=== PATIENT | female | born 1975 | race African-American/Black ===

== ENCOUNTER 2018-08-26 10:49 | Emergency (ER) | payer SELFPAY ==
[~2018-08-26] VITALS: Ht 170.2 cm; Wt 76.0 kg
[2018-08-26 10:57] VITALS: Ht 170.2 cm; Wt 76.0 kg
[2018-08-26 11:56] LABS: BASOPHIL % 0.3 % (0-2); PLATELET COUNT 140 x10^3mcL (130-400); RED CELL DISTRIBUTION WIDTH 14.4 % (11.5-14.5)
[2018-08-26 13:25] VITALS: BP 115/75
[2018-08-27 05:13] LABS: RAPID PLASMA REAGIN Non Reactive (Non Reactive)
== END 2018-08-26 13:25 | disposition home or self-care (01) ==
LOC: ED 10:49
PROVIDERS: Emergency Medicine
DX: B34.9 Viral infection, unspecified (principal); K12.1 Other forms of stomatitis
CPT/HCPCS: 36415